=== PATIENT | male | born 1950 | race Caucasian/White ===

== ENCOUNTER 2017-09-11 10:17 | Inpatient (IN) | payer MEDICARE, MEDICAID ==
[~2017-09-11] VITALS: Ht 170.2 cm; Wt 72.6 kg
[~2017-09-11 10:17] MED LIST: AMLO5TAB4 PO; ASPI-495 PO; DOCU-141 PO; GLIM2TAB PO; LISI-603 PO; LORA10TA7 PO; METF500T4 PO; METO50TA16 PO; PANT40TA4 PO; PRAV40TA PO; TERA1CAP4 PO; TRIH2TAB3 PO
[2017-09-11] MEDS ORDERED: CARB-93 PO (10:42)
[2017-09-11] MEDS ORDERED: ATOR20TA PO (10:42)
[2017-09-11] MEDS ORDERED: RISP4TAB4 PO (10:42)
[2017-09-11] MEDS ORDERED: INVEGA IM (10:42)
[2017-09-11] MEDS ORDERED: BENZ2TAB7 PO (10:42)
[2017-09-11] MEDS ORDERED: IBUP-1953 PO (10:42)
[2017-09-11 10:56] LABS: *BILIRUBIN,URIN NEGATIVE (NEGATIVE); *BLOOD, URINE Trace-intact (NEGATIVE); *CLARITY,URINE CLEAR (CLEAR); *COLOR,URINE LIGHT YELLOW (YELLOW); *KETONES,URINE NEGATIVE (NEGATIVE); *PROTEIN,URINE NEGATIVE (NEGATIVE); *UROBILINOGEN,URINE 0.2 E.U./dl (NORMAL); LEUKOCYTE ESTERASE ,URINE NEGATIVE (NEGATIVE); NITRITE, URINE NEGATIVE (NEGATIVE); PH,URINE 6.5 (5.0-8.0); UGLUCOSE NEGATIVE (NEGATIVE)
[2017-09-11] MEDS ORDERED: ALPRAZOLAM 0.25 MG TABLET PO ONE (11:00)
[2017-09-11 11:06] LABS: BACTERIA,URINE NONE SEEN /HPF (NONE SEEN); SQUAMOUS EPITHELIAL CELL,UR FEW /HPF (NONE SEEN); WBC,URINE 0-3 /HPF (0-3)
[2017-09-11 11:12] LABS: BASOPHILS % (AUTO) 0.6 % (0.0-2.0); EOSINOPHILS % (AUTO) 0.3 % (0.0-7.0); HEMOGLOBIN 12.6 g/dL (12.5-16.3); LYMPHOCYTES # (AUTO) 0.8 K/uL (20.0-40.0); LYMPHOCYTES % (AUTO) 12.6 % (20.5-51.5); MEAN CORPUSCULAR HEMOGLOBIN 30.7 uug (23.8-33.4); MEAN CORPUSCULAR HGB CONC 33 g/dL (32.5-36.3); MEAN CORPUSCULAR VOLUME 92.3 fL (73.0-96.2); MONOCYTES # (AUTO) 0.7 K/uL (2.0-10.0); MONOCYTES % (AUTO) 10.8 % (0.0-11.0); NEUTROPHILS # (AUTO) 4.8 K/uL (1.8-8.9); NEUTROPHILS % (AUTO) 75.7 % (38.5-71.5); PLATELET COUNT (AUTO) 165 K/uL (152-348); RED BLOOD CELL COUNT(AUTO) 4.12 MIL/uL (4.06-5.63); WHITE BLOOD COUNT (AUTO) 6.3 K/uL (3.6-10.2)
[2017-09-11 11:14] LABS: POTASSIUM 3.9 mmol/L (3.5-5.1)
[2017-09-11 11:20] LABS: BILIRUBIN,TOTAL 0.6 mg/dL (0.2-1.0); TOTAL PROTEIN, SERUM 7.4 g/dL (6.4-8.2)
[2017-09-11] MEDS ORDERED: ALPRAZOLAM 0.5 MG TABLET ONE (11:46)
[2017-09-11] MEDS ORDERED: MAG HYDROX/AL HYDROX/SIMETH 30 ML LIQUID UDC PO ONE (12:01)
[2017-09-11] MEDS ORDERED: MAG HYDROX/AL HYDROX/SIMETH 30 ML LIQUID UDC ONE (12:21)
[2017-09-11] MEDS ORDERED: Z GUARD REMEDY PASTE 57 GM TUBE TOP PRN ×2 (13:00→13:15)
[2017-09-11] MEDS ORDERED: RISPERIDONE 4 MG PO SCH (13:00)
[2017-09-11] MEDS ORDERED: CLONIDINE HCL 0.1 MG TABLET PO PRN (13:00)
[2017-09-11] MEDS ORDERED: ONDANSETRON 4 MG/2 ML VIAL IV PRN (13:00)
[2017-09-11] MEDS ORDERED: ZOLPIDEM 5 MG TABLET PO PRN (13:00)
[2017-09-11] MEDS ORDERED: DEXTROSE 50% 50 ML DISP.SYRIN IV PRN (13:00)
[2017-09-11 13:10] VITALS: BP 133/76
[2017-09-11] MEDS: CARBIDOPA/LEVODOPA 25-100MG TABLET PO SCH ×2 (14:44→18:11)
[2017-09-11] MEDS: ASPIRIN EC 81 MG TABLET.DR PO SCH (14:44)
[2017-09-11] MEDS: AMLODIPINE 5 MG TABLET PO SCH (14:44)
[2017-09-11 15:30] VITALS: BP 113/70
[2017-09-11] MEDS: BLOOD SUGAR DIAGNOSTIC 1 EACH STRIP VI SCH ×2 (16:30→22:20)
[2017-09-11] MEDS ORDERED: METOPROLOL TARTRATE 50 MG TABLET PO SCH (17:00)
[2017-09-11] MEDS: BENZTROPINE MESYLATE 1 MG TABLET PO SCH (18:11)
[2017-09-11] MEDS: risperiDONE 2 MG TABLET PO SCH ×2 (18:11→20:56)
[2017-09-11] MEDS: METFORMIN HCL 500 MG TABLET PO SCH (18:12)
[2017-09-11] MEDS: METOPROLOL SUCCINATE XL 100 MG TAB.SR.24H PO SCH (18:12)
[2017-09-11] MEDS: LORAZEPAM 2 MG/1 ML VIAL IV PRN (18:35)
[2017-09-11 20:07] VITALS: BP 125/76
[2017-09-11] MEDS: ATORVASTATIN 20 MG TABLET PO SCH (20:55)
[2017-09-11] MEDS: ACETAMINOPHEN 325 MG TABLET PO PRN (20:56)
[2017-09-11] MEDS: ENOXAPARIN SODIUM 40 MG/0.4 ML DISP.SYRIN SQ SCH (20:58)
[2017-09-11] MEDS ORDERED: PNEUMOCOCCAL 23-VAL P-SAC VAC 0.5 ML VIAL IM ONE (21:00)
[2017-09-12 00:35] VITALS: BP 122/76
[2017-09-12 04:00] VITALS: BP 108/62
[2017-09-12 06:39] LABS: BILIRUBIN,TOTAL 0.4 mg/dL (0.2-1.0); CREATININE 0.9 mg/dL (0.6-1.3); MAGNESIUM 1.8 mg/dL (1.8-2.4); PHOSPHOROUS 3.7 mg/dL (2.5-4.9); POTASSIUM 4.1 mmol/L (3.5-5.1); TOTAL PROTEIN, SERUM 6.3 g/dL (6.4-8.2)
[2017-09-12 06:41] LABS: THYROID STIMULATING HORMONE 1.168 mIU/mL (0.358-3.740)
[2017-09-12 06:46] LABS: BASOPHILS % (AUTO) 0.4 % (0.0-2.0); EOSINOPHILS # (AUTO) 0.1 K/uL (0.0-0.7); EOSINOPHILS % (AUTO) 1.9 % (0.0-7.0); HEMATOCRIT 37.9 % (36.7-47.1); HEMOGLOBIN 12.7 g/dL (12.5-16.3); LYMPHOCYTES # (AUTO) 1.1 K/uL (20.0-40.0); LYMPHOCYTES % (AUTO) 22.7 % (20.5-51.5); MEAN CORPUSCULAR HEMOGLOBIN 30.8 uug (23.8-33.4); MEAN CORPUSCULAR HGB CONC 34 g/dL (32.5-36.3); MEAN CORPUSCULAR VOLUME 91.9 fL (73.0-96.2); MONOCYTES # (AUTO) 0.6 K/uL (2.0-10.0); MONOCYTES % (AUTO) 11.7 % (0.0-11.0); NEUTROPHILS # (AUTO) 3.1 K/uL (1.8-8.9); NEUTROPHILS % (AUTO) 63.3 % (38.5-71.5); PLATELET COUNT (AUTO) 164 K/uL (152-348); RED BLOOD CELL COUNT(AUTO) 4.12 MIL/uL (4.06-5.63); WHITE BLOOD COUNT (AUTO) 4.9 K/uL (3.6-10.2)
[2017-09-12] MEDS: PANTOPRAZOLE SODIUM 40 MG TABLET.DR PO SCH (06:51)
[2017-09-12] MEDS: BLOOD SUGAR DIAGNOSTIC 1 EACH STRIP VI SCH ×4 (06:51→21:19)
[2017-09-12] MEDS: MORPHINE SULFATE 2 MG/1 ML DISP.SYRIN IV PRN ×3 (07:23→21:54)
[2017-09-12] MEDS: DOCUSATE SODIUM 100 MG CAPSULE PO SCH (08:27)
[2017-09-12] MEDS: METFORMIN HCL 500 MG TABLET PO SCH ×2 (08:27→17:16)
[2017-09-12] MEDS: BENZTROPINE MESYLATE 1 MG TABLET PO SCH ×2 (08:27→17:17)
[2017-09-12] MEDS: risperiDONE 2 MG TABLET PO SCH ×4 (08:27→21:19)
[2017-09-12] MEDS: ASPIRIN EC 81 MG TABLET.DR PO SCH (08:27)
[2017-09-12] MEDS: GLIMEPIRIDE 2 MG TABLET PO SCH (08:28)
[2017-09-12] MEDS: CARBIDOPA/LEVODOPA 25-100MG TABLET PO SCH ×3 (08:28→17:16)
[2017-09-12] MEDS: AMLODIPINE 5 MG TABLET PO SCH (08:36)
[2017-09-12] MEDS: LORAZEPAM 2 MG/1 ML VIAL IV PRN (09:29)
[2017-09-12 11:24] VITALS: BP 141/70
[2017-09-12] MEDS: INSULIN REGULAR, HUMAN 300 UNIT/3 ML VIAL SQ PRN ×2 (12:12→21:28)
[2017-09-12 15:50] VITALS: BP 110/58
[2017-09-12] MEDS: ACETAMINOPHEN 325 MG TABLET PO PRN (17:16)
[2017-09-12] MEDS: METOPROLOL SUCCINATE XL 100 MG TAB.SR.24H PO SCH (18:00)
[2017-09-12 20:00] VITALS: BP 105/56
[2017-09-12] MEDS: ATORVASTATIN 20 MG TABLET PO SCH (21:19)
[2017-09-12] MEDS: ENOXAPARIN SODIUM 40 MG/0.4 ML DISP.SYRIN SQ SCH (21:27)
[2017-09-12 23:57] VITALS: BP 101/57
[2017-09-13] MEDS: LORAZEPAM 2 MG/1 ML VIAL IV PRN ×2 (02:36→22:33)
[2017-09-13 04:32] VITALS: BP 99/56
[2017-09-13] MEDS: PANTOPRAZOLE SODIUM 40 MG TABLET.DR PO SCH (06:08)
[2017-09-13 06:33] LABS: *BILIRUBIN,URIN NEGATIVE (NEGATIVE); *BLOOD, URINE NEGATIVE (NEGATIVE); *CLARITY,URINE CLEAR (CLEAR); *COLOR,URINE YELLOW (YELLOW); *KETONES,URINE NEGATIVE (NEGATIVE); *PROTEIN,URINE NEGATIVE (NEGATIVE); *UROBILINOGEN,URINE 0.2 E.U./dl (NORMAL); LEUKOCYTE ESTERASE ,URINE NEGATIVE (NEGATIVE); NITRITE, URINE NEGATIVE (NEGATIVE); PH,URINE 5.5 (5.0-8.0); UGLUCOSE NEGATIVE (NEGATIVE)
[2017-09-13] MEDS: BLOOD SUGAR DIAGNOSTIC 1 EACH STRIP VI SCH ×4 (06:48→20:52)
[2017-09-13 07:04] LABS: BASOPHILS % (AUTO) 0.4 % (0.0-2.0); EOSINOPHILS # (AUTO) 0.1 K/uL (0.0-0.7); EOSINOPHILS % (AUTO) 0.8 % (0.0-7.0); HEMATOCRIT 37.9 % (36.7-47.1); HEMOGLOBIN 12.8 g/dL (12.5-16.3); LYMPHOCYTES # (AUTO) 1.3 K/uL (20.0-40.0); LYMPHOCYTES % (AUTO) 17.4 % (20.5-51.5); MEAN CORPUSCULAR HGB CONC 34 g/dL (32.5-36.3); MEAN CORPUSCULAR VOLUME 92.1 fL (73.0-96.2); MONOCYTES # (AUTO) 0.8 K/uL (2.0-10.0); MONOCYTES % (AUTO) 10.6 % (0.0-11.0); NEUTROPHILS # (AUTO) 5.2 K/uL (1.8-8.9); NEUTROPHILS % (AUTO) 70.8 % (38.5-71.5); PLATELET COUNT (AUTO) 157 K/uL (152-348); RED BLOOD CELL COUNT(AUTO) 4.12 MIL/uL (4.06-5.63); WHITE BLOOD COUNT (AUTO) 7.3 K/uL (3.6-10.2)
[2017-09-13 07:08] LABS: BILIRUBIN,TOTAL 0.4 mg/dL (0.2-1.0); CREATININE 0.9 mg/dL (0.6-1.3); MAGNESIUM 1.8 mg/dL (1.8-2.4); PHOSPHOROUS 4.3 mg/dL (2.5-4.9); POTASSIUM 4.4 mmol/L (3.5-5.1); TOTAL PROTEIN, SERUM 6.9 g/dL (6.4-8.2)
[2017-09-13 07:53] LABS: BACTERIA,URINE FEW /HPF (NONE SEEN); RBC,URINE 0-3 /HPF (0-3); SQUAMOUS EPITHELIAL CELL,UR FEW /HPF (NONE SEEN); WBC,URINE 0-3 /HPF (0-3)
[2017-09-13 09:00] VITALS: BP 135/67
[2017-09-13] MEDS: ASPIRIN EC 81 MG TABLET.DR PO SCH (09:23)
[2017-09-13] MEDS: METFORMIN HCL 500 MG TABLET PO SCH ×2 (09:24→17:54)
[2017-09-13] MEDS: CARBIDOPA/LEVODOPA 25-100MG TABLET PO SCH ×3 (09:24→17:53)
[2017-09-13] MEDS: DOCUSATE SODIUM 100 MG CAPSULE PO SCH (09:24)
[2017-09-13] MEDS: GLIMEPIRIDE 2 MG TABLET PO SCH (09:24)
[2017-09-13] MEDS: BENZTROPINE MESYLATE 1 MG TABLET PO SCH ×2 (09:25→17:53)
[2017-09-13] MEDS: AMLODIPINE 5 MG TABLET PO SCH (09:39)
[2017-09-13] MEDS: risperiDONE 2 MG TABLET PO SCH ×2 (09:40→17:54)
[2017-09-13] MEDS: INSULIN REGULAR, HUMAN 300 UNIT/3 ML VIAL SQ PRN (12:22)
[2017-09-13 16:00] VITALS: BP 101/60
[2017-09-13] MEDS: METOPROLOL SUCCINATE XL 100 MG TAB.SR.24H PO SCH (18:27)
[2017-09-13 20:00] VITALS: BP 100/52
[2017-09-13] MEDS: ENOXAPARIN SODIUM 40 MG/0.4 ML DISP.SYRIN SQ SCH (20:50)
[2017-09-13] MEDS: ATORVASTATIN 20 MG TABLET PO SCH (20:51)
[2017-09-13] MEDS: TEMAZEPAM 7.5 MG CAPSULE PO PRN (21:26)
[2017-09-14 06:27] VITALS: BP 102/67
[2017-09-14] MEDS: BLOOD SUGAR DIAGNOSTIC 1 EACH STRIP VI SCH ×4 (06:40→20:32)
[2017-09-14] MEDS: PANTOPRAZOLE SODIUM 40 MG TABLET.DR PO SCH (06:40)
[2017-09-14 07:00] LABS: BASOPHILS % (AUTO) 0.5 % (0.0-2.0); EOSINOPHILS # (AUTO) 0.1 K/uL (0.0-0.7); EOSINOPHILS % (AUTO) 1.2 % (0.0-7.0); HEMATOCRIT 39.2 % (36.7-47.1); HEMOGLOBIN 13.1 g/dL (12.5-16.3); LYMPHOCYTES # (AUTO) 1.2 K/uL (20.0-40.0); LYMPHOCYTES % (AUTO) 16.7 % (20.5-51.5); MEAN CORPUSCULAR HGB CONC 33 g/dL (32.5-36.3); MEAN CORPUSCULAR VOLUME 93.1 fL (73.0-96.2); MONOCYTES # (AUTO) 0.7 K/uL (2.0-10.0); MONOCYTES % (AUTO) 10.4 % (0.0-11.0); NEUTROPHILS # (AUTO) 5.1 K/uL (1.8-8.9); NEUTROPHILS % (AUTO) 71.2 % (38.5-71.5); PLATELET COUNT (AUTO) 174 K/uL (152-348); RED BLOOD CELL COUNT(AUTO) 4.21 MIL/uL (4.06-5.63); WHITE BLOOD COUNT (AUTO) 7.2 K/uL (3.6-10.2)
[2017-09-14 07:36] LABS: BILIRUBIN,TOTAL 0.5 mg/dL (0.2-1.0); CREATININE 0.9 mg/dL (0.6-1.3); PHOSPHOROUS 3.9 mg/dL (2.5-4.9); POTASSIUM 4.6 mmol/L (3.5-5.1); TOTAL PROTEIN, SERUM 7.2 g/dL (6.4-8.2)
[2017-09-14] MEDS: CARBIDOPA/LEVODOPA 25-100MG TABLET PO SCH ×3 (08:42→16:48)
[2017-09-14] MEDS: risperiDONE 2 MG TABLET PO SCH ×2 (08:42→16:39)
[2017-09-14] MEDS: DOCUSATE SODIUM 100 MG CAPSULE PO SCH (08:42)
[2017-09-14] MEDS: ACETAMINOPHEN 325 MG TABLET PO PRN (08:42)
[2017-09-14] MEDS: METFORMIN HCL 500 MG TABLET PO SCH ×2 (08:42→16:43)
[2017-09-14] MEDS: BENZTROPINE MESYLATE 1 MG TABLET PO SCH ×2 (08:42→16:39)
[2017-09-14] MEDS: AMLODIPINE 5 MG TABLET PO SCH (08:43)
[2017-09-14] MEDS: ASPIRIN EC 81 MG TABLET.DR PO SCH (08:43)
[2017-09-14] MEDS: GLIMEPIRIDE 2 MG TABLET PO SCH (08:43)
[2017-09-14 11:34] VITALS: BP 128/57
[2017-09-14] MEDS: LORAZEPAM 2 MG/1 ML VIAL IV PRN (12:28)
[2017-09-14 15:54] VITALS: BP 128/60
[2017-09-14] MEDS: METOPROLOL SUCCINATE XL 100 MG TAB.SR.24H PO SCH (16:48)
[2017-09-14 19:00] VITALS: BP 114/44
[2017-09-14] MEDS: ATORVASTATIN 20 MG TABLET PO SCH (20:27)
[2017-09-14] MEDS: ENOXAPARIN SODIUM 40 MG/0.4 ML DISP.SYRIN SQ SCH (20:28)
[2017-09-15] MEDS: ACETAMINOPHEN 325 MG TABLET PO PRN (00:43)
[2017-09-15] MEDS: TEMAZEPAM 7.5 MG CAPSULE PO PRN (01:34)
[2017-09-15] MEDS: LORAZEPAM 2 MG/1 ML VIAL IV PRN ×2 (02:26→15:58)
[2017-09-15 06:10] VITALS: BP 128/72
[2017-09-15] MEDS: PANTOPRAZOLE SODIUM 40 MG TABLET.DR PO SCH (06:28)
[2017-09-15] MEDS: BLOOD SUGAR DIAGNOSTIC 1 EACH STRIP VI SCH ×3 (06:32→17:06)
[2017-09-15 08:00] VITALS: BP 132/70
[2017-09-15] MEDS: BENZTROPINE MESYLATE 1 MG TABLET PO SCH ×2 (08:07→17:29)
[2017-09-15] MEDS: CARBIDOPA/LEVODOPA 25-100MG TABLET PO SCH ×3 (08:07→17:29)
[2017-09-15] MEDS: GLIMEPIRIDE 2 MG TABLET PO SCH (08:08)
[2017-09-15] MEDS: METFORMIN HCL 500 MG TABLET PO SCH ×2 (08:08→17:28)
[2017-09-15] MEDS: DOCUSATE SODIUM 100 MG CAPSULE PO SCH (08:09)
[2017-09-15] MEDS: AMLODIPINE 5 MG TABLET PO SCH (08:09)
[2017-09-15] MEDS: risperiDONE 2 MG TABLET PO SCH ×2 (08:09→17:29)
[2017-09-15] MEDS: ASPIRIN EC 81 MG TABLET.DR PO SCH (08:09)
[2017-09-15 12:00] VITALS: BP 123/57
[2017-09-15 16:00] VITALS: BP 126/52
[2017-09-15] MEDS: INSULIN REGULAR, HUMAN 300 UNIT/3 ML VIAL SQ PRN (17:05)
[2017-09-15 17:30] VITALS: BP 135/67
[2017-09-15] MEDS: METOPROLOL SUCCINATE XL 100 MG TAB.SR.24H PO SCH (17:30)
== END 2017-09-15 17:40 | disposition hospice, home (50) | DRG 57 ==
LOC: ER 10:20 → TELE 12:24 → MED 09-13 11:30
PROVIDERS: ADMIT Internal Medicine; ATTEND Internal Medicine
DX: G20 Parkinson's disease (principal); E44.0 Moderate protein-calorie malnutrition; M50.021 Cervical disc disorder at C4-C5 level with myelopathy; E11.40 Type 2 diabetes mellitus with diabetic neuropathy, unspecified; F20.0 Paranoid schizophrenia; M48.54XA Collapsed vertebra, not elsewhere classified, thoracic region, initial encounter for fracture; W19.XXXA Unspecified fall, initial encounter; E11.65 Type 2 diabetes mellitus with hyperglycemia; K21.0 Gastro-esophageal reflux disease with esophagitis; Z86.73 Personal history of transient ischemic attack (TIA), and cerebral infarction without residual deficits; I25.2 Old myocardial infarction; R29.6 Repeated falls; M62.838 Other muscle spasm; G47.01 Insomnia due to medical condition; Z88.0 Allergy status to penicillin; Z91.013 Allergy to seafood; T79.6XXA Traumatic ischemia of muscle, initial encounter; Z68.25 Body mass index [BMI] 25.0-25.9, adult; I10 Essential (primary) hypertension; R07.9 Chest pain, unspecified; M25.78 Osteophyte, vertebrae; Z79.82 Long term (current) use of aspirin; Z79.84 Long term (current) use of oral hypoglycemic drugs; Z79.899 Other long term (current) drug therapy; F31.9 Bipolar disorder, unspecified; E78.5 Hyperlipidemia, unspecified; E04.1 Nontoxic single thyroid nodule; K59.00 Constipation, unspecified; M48.02 Spinal stenosis, cervical region; R94.31 Abnormal electrocardiogram [ECG] [EKG]
CPT/HCPCS: 36415; 70030-TC; 70450; 71045; 72125; 72141; 83735; 84100; 84443; 85025; 85610; 87086; 90732; 93005; 93307; 97116; 97530; A4663; J1650; J1815; J2060; J2270; J7030